=== PATIENT | female | born 1970 | race Caucasian/White ===

== ENCOUNTER → 2017-11-24 | Outpatient (REF) | payer OTHER | LOC: M SFHCCLAY 14:56 | DX: Z12.4 Encounter for screening for malignant neoplasm of cervix (principal); Z53.8 Procedure and treatment not carried out for other reasons ==

== ENCOUNTER → 2017-12-24 | Outpatient (REF) | payer OTHER ==
[2017-12-24 12:25] LABS: HEMATOCRIT 43.3 % (36.0-47.0); HEMOGLOBIN 14.4 g/dl (12.0-15.5)
== END ==
LOC: M LABDRAWP 12:11
DX: N92.6 Irregular menstruation, unspecified (principal)

== ENCOUNTER → 2018-05-11 | Outpatient (REF) | payer OTHER | LOC: M SFHCCLAY 13:40 | PROVIDERS: ATTEND Family Medicine | DX: R30.0 Dysuria (principal) ==

== ENCOUNTER → 2018-12-23 | Outpatient (REF) | payer OTHER | LOC: M LAB REF 18:35 | PROVIDERS: ATTEND Family Medicine | DX: Z12.4 Encounter for screening for malignant neoplasm of cervix (principal) ==

== ENCOUNTER → 2018-12-23 | Outpatient (CLI) | payer OTHER ==
--- NOTE | 2018-12-26 14:45 | REPMRS ---
Patient History The patient states she has not had a clinical breast exam in over a year. No known family history of cancer. No Hormone Replacement Therapy 3D TOMOSYNTHESIS WAS PERFORMED. [facility] lifetime risk for breast cancer is 9.1%. Digital Woman Screen Mammo: December 23, 2018 - Exam #: [id number] Bilateral CC and MLO view(s) were taken. Technologist: Nolvia Andre, Technologist Prior study comparison: 2018, bilateral digital mammo screening bilat, performed at [facility]. FINDINGS: The breast tissue is heterogeneously dense. This may lower the sensitivity of mammography. There has been no change in the appearance of the mammogram from the prior studies. There is a moderate amount of residual fibroglandular tissue which is fairly symmetric. There is no interval development of dominant mass, areas of architectural distortion, or clustered microcalcification typical of malignancy. Assessment: BI-RADS/ACR category 1 mammogram. Negative Mammogram. Recommendation Routine screening mammogram in 1 year (for women over age 40). This mammogram was interpreted with the aid of an FDA-approved computer-aided dectection system. Electronically Signed By: Dimitri Bowman MD 12/26/18 [id number]
== END ==
LOC: M WHC 09:27
PROVIDERS: ATTEND Family Medicine
DX: Z12.31 Encounter for screening mammogram for malignant neoplasm of breast (principal)

== ENCOUNTER → 2018-12-23 | Outpatient (REF) | payer OTHER | LOC: M SFHCWAGY 09:45 | PROVIDERS: ATTEND Family Medicine | DX: Z12.4 Encounter for screening for malignant neoplasm of cervix (principal) ==

== ENCOUNTER → 2020-01-01 | Outpatient (CLI) | payer SELFPAY | LOC: M LABSMTC 14:09 | PROVIDERS: ATTEND Pediatrics | DX: Z20.828 Contact with and (suspected) exposure to other viral communicable diseases (principal) ==

== ENCOUNTER → 2020-12-02 | Outpatient (REF) | payer BC ==
[2020-12-02 11:55] LABS: BASO % 0.3 % (0.0-1.0); EOS # 0.1 10^3/uL (0.0-0.5); EOS % 1.4 % (0.0-3.0); HEMATOCRIT 42.1 % (36.0-47.0); HEMOGLOBIN 14.1 g/dl (12.0-15.5); LYMPH # 1.3 10^3/uL (1.5-5.0); LYMPH % 21.3 % (24.0-44.0); MEAN CORPUSCULAR HEMOGLOBIN 31.8 pg (27.0-33.0); MEAN CORPUSCULAR HGB CONC 33.5 g/dl (32.0-36.5); MONO # 0.6 10^3/uL (0.0-0.8); NEUTROPHILS # 3.9 10^3/uL (1.5-8.5); NEUTROPHILS % 66.7 % (36.0-66.0); PLATELET COUNT, AUTOMATED 309 10^3/uL (150-450); RED BLOOD COUNT 4.43 10^6/uL (4.00-5.40); WHITE BLOOD COUNT 5.9 10^3/uL (4.0-10.0)
[2020-12-02 12:31] LABS: ALBUMIN 3.8 GM/DL (3.2-5.2); ALT/SGPT 26 U/L (12-78); BILIRUBIN,TOTAL 0.4 MG/DL (0.2-1.0); BLOOD UREA NITROGEN 9 MG/DL (7-18); CALCIUM LEVEL 9.3 MG/DL (8.5-10.1); CARBON DIOXIDE LEVEL 28 MEQ/L (21-32); CHLORIDE LEVEL 105 MEQ/L (98-107); CHOLESTEROL LEVEL 187 MG/DL (<200); CREATININE FOR GFR 0.73 MG/DL (0.55-1.30); GLOMERULAR FILTRATION RATE > 60.0 (>51); GLUCOSE, FASTING 80 MG/DL (70-100); HDL CHOLESTEROL 76 MG/DL (>40); LDL CHOLESTEROL 87 MG/DL (<100); NON-HDL-C 111 MG/DL; POTASSIUM SERUM 4.4 MEQ/L (3.5-5.1); SODIUM LEVEL 139 MEQ/L (136-145); TOTAL PROTEIN 7.6 GM/DL (6.4-8.2); TRIGLYCERIDES LEVEL 118 MG/DL (<150)
== END ==
LOC: M SFHCCLAY 08:56
PROVIDERS: ATTEND Family Medicine
DX: Z00.00 Encounter for general adult medical examination without abnormal findings (principal); Z13.220 Encounter for screening for lipoid disorders; Z13.0 Encounter for screening for diseases of the blood and blood-forming organs and certain disorders involving the immune mechanism; Z13.29 Encounter for screening for other suspected endocrine disorder

== ENCOUNTER → 2021-08-06 | Outpatient (REF) | payer BC | LOC: M SFHCCLAY 11:33 | PROVIDERS: ATTEND Nurse Practitioner Family | DX: J01.01 Acute recurrent maxillary sinusitis (principal) ==

== ENCOUNTER 2022-06-17 10:20 | Day surgery (SDC) | payer BC ==
[~2022-06-17] VITALS: Ht 160 cm; Wt 62.1 kg
[~2022-06-17 10:20] MED LIST: ATIV1TAB7 PO; DOXY50CA51 PO; LORA-243 PO; NS 1,000 ML IV ONE
[2022-06-17] MEDS ORDERED: propofoL 200 MG/20 ML VIAL As Ordered ONE (11:36)
[2022-06-17 12:25] VITALS: BP 143/78
== END 2022-06-17 12:33 | disposition home or self-care (01) ==
LOC: M OPP 10:20
PROVIDERS: ATTEND Internal Medicine Gastroenterology
DX: Z12.0 Encounter for screening for malignant neoplasm of stomach (principal); Z12.6 Encounter for screening for malignant neoplasm of bladder; K64.0 First degree hemorrhoids; K57.30 Diverticulosis of large intestine without perforation or abscess without bleeding; R19.5 Other fecal abnormalities; Z79.2 Long term (current) use of antibiotics; Z79.899 Other long term (current) drug therapy; Z88.2 Allergy status to sulfonamides; Z88.1 Allergy status to other antibiotic agents; Z91.041 Radiographic dye allergy status

== ENCOUNTER → 2025-01-23 | Outpatient (REF) | payer BC ==
[~2025-01-23] MED LIST changes: +DOXY50CA50 PO; -DOXY50CA51 PO; -NS 1,000 ML IV ONE
== END ==
LOC: M SFHCCLAY 14:45
PROVIDERS: ATTEND Physician Assistant
DX: N61.0 Mastitis without abscess (principal)

== ENCOUNTER → 2025-02-05 | Outpatient (CLI) | payer BC | LOC: M WHC 09:06 | PROVIDERS: ATTEND Advanced Practice Midwife | DX: Z12.31 Encounter for screening mammogram for malignant neoplasm of breast (principal); R92.323 Mammographic fibroglandular density, bilateral breasts ==

== ENCOUNTER → 2025-02-05 | Outpatient (REF) | payer BC ==
[2025-02-07 14:43] LABS: HPV APTIMA Not Detected (Not Detected)
== END ==
LOC: M SFHCWAGY 14:52
PROVIDERS: ATTEND Advanced Practice Midwife
DX: Z12.4 Encounter for screening for malignant neoplasm of cervix (principal)
CPT/HCPCS: 87624; G0123